=== PATIENT | male | born 1975 | race African-American/Black ===

== ENCOUNTER 2024-02-27 10:13 | Emergency (ER) | payer OTHER ==
[~2024-02-27] VITALS: Ht 175.3 cm; Wt 95.0 kg
[2024-02-27 10:15] VITALS: O2SAT 96
[2024-02-27] MEDS ORDERED: IBUPROFEN 600MG TABLET PO ONE (12:00)
[2024-02-27] MEDS ORDERED: IBUP-2029 MT (13:28)
[2024-02-27 13:59] VITALS: BP 140/92; PULSE 66; RESP 18; TEMP 36.72516; O2SAT 96
[2024-02-27] MEDS: IBUPROFEN 600MG TABLET PO NR (14:02)
== END 2024-02-27 13:59 | disposition home or self-care (01) ==
LOC: ER 10:13
DX: S60.212A Contusion of left wrist, initial encounter (principal); Z98.890 Other specified postprocedural states; X58.XXXA Exposure to other specified factors, initial encounter; Y93.89 Activity, other specified; Y92.89 Other specified places as the place of occurrence of the external cause; Y99.8 Other external cause status
CPT/HCPCS: 29125; 73110; 99283